=== PATIENT | male | born 1965 | race African-American/Black ===

== ENCOUNTER 2023-06-14 12:58 | Emergency (ER) | payer OTHER ==
[~2023-06-14] VITALS: Ht 175.3 cm; Wt 126.0 kg
[2023-06-14 13:22] VITALS: TEMP 98.2; O2SAT 100
[2023-06-14 15:45] LABS: BASOPHILS % 0.4 % (0.0-2.0); EOSINOPHILS % 3.8 % (0.0-5.0); HEMATOCRIT. 40.9 % (42.0-52.0); HEMOGLOBIN. 13.5 g/dL (14.0-18.0); LYMPHOCYTES % 27.9 % (20.0-50.0); MEAN CORPUSCULAR HEMOGLOBIN 29.2 pg (28.0-32.0); MEAN CORPUSCULAR VOLUME 88.5 fL (80.0-94.0); MEAN PLATELET VOLUME 8.3 fl (7.4-10.4); MONOCYTES % 6.4 % (2.0-8.0); NEUTROPHILS % 61.5 % (40.0-76.0); PLATELET 289 x1000/uL (130-400); RED BLOOD CELL COUNT 4.62 mill/uL (4.7-6.1); RED CELL DISTRIBUTION WIDTH 13.9 % (11.6-14.6); WHITE BLOOD COUNT 11.1 x1000/uL (4.5-11.0)
[2023-06-14 15:51] LABS: CHLORIDE 101 mEq/L (98-107); INDEX HEMOLYSI 1 (1-3); INDEX ICTERIC 1 (1-4); INDEX LIPEMIC 1 (1-3); POTASSIUM 4.1 mEq/L (3.5-5.1); SODIUM 132 mEq/L (136-145)
[2023-06-14 15:57] LABS: ALBUMIN 3.5 g/dL (3.4-5.0); CALCIUM 9.6 mg/dL (8.5-10.1); CARBON DIOXIDE 27 mEq/L (21-32); GLUCOSE 231 mg/dL (70-105); UREA NITROGEN BLOOD 9 mg/dL (7-21)
[2023-06-14 16:02] LABS: ALANINE AMINOTRANSFERASE 19 IU/L (13-61); ASPARTATE AMINOTRANSFERASE 19 IU/L (15-37); BILIRUBIN TOTAL 0.8 mg/dL (0.1-1.0); CREATININE 0.9 mg/dL (0.6-1.3); PROTEIN TOTAL 7.9 g/dL (6.0-8.3)
[2023-06-14] MEDS ORDERED: MAGNESIUM/ALUMINUM HYDROXIDE/SIMETHICONE 30ML UDC PO STA (17:08)
[2023-06-14 19:30] VITALS: BP 181/93; PULSE 84; RESP 16
[2023-06-14] MEDS ORDERED: KETOROLAC 60MG/2ML VIAL IM ONE (19:30)
[2023-06-14] MEDS ORDERED: OMEP40CA20 MT (21:25)
== END 2023-06-14 22:01 | disposition home or self-care (01) ==
LOC: ER 13:18
DX: K85.90 Acute pancreatitis without necrosis or infection, unspecified (principal); E11.9 Type 2 diabetes mellitus without complications; Z91.010 Allergy to peanuts; Z91.018 Allergy to other foods
CPT/HCPCS: 99285; 74176; 80053; 83690; 85025; 36415; 96372; J1885